=== PATIENT | male | born 1965 | race Caucasian/White ===

== ENCOUNTER 2018-09-24 11:14 | Emergency (ER) | payer OTHER ==
[~2018-09-24] VITALS: Ht 172.7 cm; Wt 81.6 kg
[2018-09-24 11:17] VITALS: BP 165/113
[2018-09-24] MEDS ORDERED: DIPHTH,PERTUSS(ACELL),TET TOX 0.5 ML DISP.SYRIN. VAX IM ONE (12:00)
[2018-09-24] MEDS ORDERED: CEPH-264 PO (12:06)
--- NOTE | 2018-09-24 12:06 | PHYS DOC ---
Past History Past Medical History: Other Past Surgical History: No Surgical History Alcohol Use: None Drug Use: None Adult General Chief Complaint Chief Complaint: LACERATION/AVULSION HPI HPI 53-year-old male presents with left thumb stab wound. Patient was using a drill when it slipped and the [employer] driver bit drove through his left thumb. It just barely protruded out of the dorsal side, so he states it went all the way through the finger. He was able to let back out of the hole. The patient had some bleeding but it has been controlled with simple pressure. The patient is unsure if he ne eds sutures. He knows his tetanus is out of date. He did rise the wound off at home. He does not believe there is any foreign body. Review of Systems Review of Systems Constitutional: Denies fever or chills [] Eyes: Denies change in visual acuity, redness, or eye pain [] HENT: Denies nasal congestion or sore throat [] Respiratory: Denies cough or shortness of breath [] Cardiovascular: No additional information not addressed in HPI [] GI: Denies abdominal pain, nausea, vomiting, bloody stools or diarrhea [] : Denies dysuria or hematuria [] Musculoskeletal: Penetration wound of the left thumb[] Integument: Denies rash or skin lesions [] Neurologic: Denies headache, focal weakness or sensory changes [] Endocrine: Denies polyuria or polydipsia [] All other systems were reviewed and found to be within normal limits, except as documented in this note. Current Medications Current Medications Current Medications Medications (Trade) Dose Ordered Sig/Tae Start Time Stop Time Status Last Admin Dose Admin Diphtheria/ Tetanus/Acell Pertussis (Boostrix) 0.5 ml ONCE ONCE 09/24/18 12:00 09/24/18 12:01 Allergies Allergies Allergies Coded Allergies Type Severity Reaction Last Updated Verified codeine Allergy Mild NAUSEA 09/24/18 Yes Physical Exam Physical Exam Constitutional: Well developed, well nourished, no acute distress, non-toxic appearance. [] HENT: Normocephalic, atraumatic, bilateral external ears normal, oropharynx moist, no oral exudates, nose normal. [] Eyes: PERRLA, EOMI, conjunctiva normal, no discharge. [] Neck: Normal range of motion, no tenderness, supple, no stridor. [] Cardiovascular:Heart rate regular rhythm, no murmur [] Lungs & Thorax: Bilateral breath sounds clear to auscultation [] Abdomen: Bowel sounds normal, soft, no tenderness, no masses, no pulsatile masses. [] Skin: 5 mm puncture wound in the palmar left thumb[] Back: No tenderness, no CVA tenderness. [] Extremities: No tenderness, no cyanosis, no clubbing, ROM intact, no edema. Left thumb neurovascularly intact [] Neurologic: Alert and oriented X 3, normal motor function, normal sensory function, no focal deficits noted. [] Psychologic: Affect normal, judgement normal, mood normal. [] Current Patient Data Vital Signs Vital Signs Date Time Temp Pulse Resp B/P (MAP) Pulse Ox O2 Delivery O2 Flow Rate FiO2 09/24/18 11:17 97.8 105 24 97 Room Air EKG EKG [] Radiology/Procedures Radiology/Procedures [] Course & Med Decision Making Course & Med Decision Making Pertinent Labs and Imaging studies reviewed. (See chart for details) We will x-ray the patient's finger to rule out foreign body. We will also cl eanse it with a saline Hibiclens solution. Since this is a penetrating wound, we will not close it. Give him his tetanus shot and discharge him with a prescription for Keflex. No foreign body was seen on x-ray. He is stable for discharge at this time. [] Dragon Disclaimer Dragon Disclaimer This electronic medical record was generated, in whole or in part, using a voice recognition dictation system. Departure Departure: Impression: Primary Impression: Thumb laceration Disposition: 01 HOME, SELF-CARE Condition: STABLE Referrals: PCP,NO (PCP) Patient Instructions: Laceration Care, Adult, [id number] Scripts Cephalexin (KEFLEX) 500 Mg Capsule 1 CAP PO TID for finger laceration, #21 CAP Prov: MEI SANDOVAL DO 09/24/18 Problem Qualifiers Primary Impression: Thumb laceration Encounter type: initial encounter Damage to nail status: without damage Foreign body presence: without foreign body Laterality: left Qualified Codes: S61.012A - Laceration without foreign body of left thumb without damage to nail, initial encounter MEI SANDOVAL DO September 24, 2018 12:06
--- NOTE | 2018-09-24 12:21 | RAD ---
Left thumb, 3 views, 09/24/2018: HISTORY: Possible foreign body No fracture or dislocation is identified. No large radiopaque foreign body is seen. On one view there are 2 tiny punctate radiopacities projected over the soft tissues along the volar aspect of the proximal phalanx suggesting minimal debris which may be on the surface of the patient or within a wound. Clinical correlation is suggested. Electronically signed by: Rico Melchor MD (09/24/2018 12:18 PM) [facility]
== END 2018-09-24 12:25 | disposition home or self-care (01) ==
LOC: ER 11:14
DX: S61.012A Laceration without foreign body of left thumb without damage to nail, initial encounter (principal); Z88.5 Allergy status to narcotic agent; W29.8XXA Contact with other powered hand tools and household machinery, initial encounter; Y93.89 Activity, other specified; Y92.89 Other specified places as the place of occurrence of the external cause; Y99.8 Other external cause status
CPT/HCPCS: 73140; 90471; 90715; 99284

== ENCOUNTER → 2018-10-22 | Outpatient (CLI) | payer MEDICARE, OTHER ==
[2018-09-24 11:17] VITALS: BP 165/113
[~2018-10-22] MED LIST: BUPIVACAINE MPF 0.25% 10 ML VIAL. ONE; CEPH-264 PO; LIDOCAINE 1% PF 30 ML VIAL. ONE
== END ==
LOC: SURG 10:05
PROVIDERS: ATTEND Anesthesiology Pain Medicine
DX: M79.18 Myalgia, other site (principal); M41.9 Scoliosis, unspecified; K44.9 Diaphragmatic hernia without obstruction or gangrene; Z87.891 Personal history of nicotine dependence; Z72.89 Other problems related to lifestyle; Z88.5 Allergy status to narcotic agent
CPT/HCPCS: 20553; J2001; J3490

== ENCOUNTER → 2018-12-17 | Outpatient (CLI) | payer OTHER ==
[~2018-12-17] MED LIST changes: -BUPIVACAINE MPF 0.25% 10 ML VIAL. ONE; -LIDOCAINE 1% PF 30 ML VIAL. ONE; +MAGN84TA PO; +OMEP20CA10 PO; +TADA5TAB PO
[2018-12-17 13:38] VITALS: BP 131/81
== END | disposition home or self-care (01) ==
LOC: SURG 13:21
PROVIDERS: ATTEND Anesthesiology Pain Medicine
DX: M54.15 Radiculopathy, thoracolumbar region (principal); M79.12 Myalgia of auxiliary muscles, head and neck; M25.519 Pain in unspecified shoulder; D49.2 Neoplasm of unspecified behavior of bone, soft tissue, and skin; K21.9 Gastro-esophageal reflux disease without esophagitis; Z79.899 Other long term (current) drug therapy
CPT/HCPCS: 99214

== ENCOUNTER → 2021-05-06 | Outpatient (CLI) | payer MEDICARE, OTHER ==
[2018-12-17 13:38] VITALS: BP 131/81
[~2021-05-06] MED LIST changes: -OMEP20CA10 PO; +OMEP20CA16 PO
--- NOTE | 2021-05-06 08:30 | RAD ---
EXAM: Abdomen sonogram. HISTORY: Epigastric pain. TECHNIQUE: Sonographic imaging of the abdomen was performed. COMPARISON: None. FINDINGS: The liver is enlarged. There is hepatic steatosis. No focal hepatic lesion is seen. The com mon bile duct is normal in caliber. The gallbladder is unremarkable. The kidneys are unremarkable. Th e pancreas, aorta and inferior cava are obscured due to bowel gas. The spleen is enlarged, measuring 15.1 cm. IMPRESSION: 1. Hepatic steatosis and hepatosplenomegaly. 2. Obscured midline structures due to bowel gas. Electronically signed by: Arielle Krishnamurthy MD (05/06/2021 8:27 AM) [id number]
== END ==
LOC: US 07:43
PROVIDERS: ATTEND Nurse Practitioner Adult Health
DX: R11.2 Nausea with vomiting, unspecified (principal); R13.10 Dysphagia, unspecified; R19.4 Change in bowel habit; R10.13 Epigastric pain
CPT/HCPCS: 76700